=== PATIENT | female | born 1990 | race African-American/Black ===

== ENCOUNTER 2022-01-16 12:23 | Observation (INO) ==
[2022-01-16 16:28] LABS: Glucose,Urine (UA) Negative (Negative); Mucus,Urine Occasional /LPF (Occasional); Protein,Urine Negative (Negative); RBC,Urine 3 /HPF (0-4); Squamous Epithelial Cell,Urine Occasional /HPF (0-10); Urine Appearance Clear (Clear); Urine Color Yellow (Yellow); Urine Specific Gravity > 1.030 (1.001-1.035)
[2022-01-16 16:29] LABS: Bilirubin,Urine Negative (Negative); Blood, Urine Large mg/dL (Negative); Ketones,Urine >160 mg/dL (Negative); Nitrite,Urine Negative (Negative); Urine Urobilinogen 0.2 eU/dL (<2.0)
[2022-01-16 16:42] LABS: Basophils % 0.2 % (0.0-0.8); Eosinophils % 0.5 % (0.00-10.9); Hematocrit 34.7 VOL% (35.7-47.0); Hemoglobin 11.3 GM/DL (12.0-16.0); Immature Granulocytes % 0.5 %; Immature Granulocytes Absolute 0.04 #; Lymphocytes # 2.2 10*3/uL (1.4-4.0); Lymphocytes % 27.7 % (21.3-54.2); Mean Corpuscular HGB Conc 32.6 GM/DL (32-36); Mean Corpuscular Volume 84.4 FL (87-102); Monocytes # 0.8 10*3/uL (0.11-0.8); Monocytes % 9.4 % (1.7-12.7); Neutrophils % 61.7 % (38.7-73.9); Platelet Count 248 T/CUMM (130-400); Red Blood Count 4.11 MC/CUMM (3.8-5.5); Red Cell Distribution Width 13.2 % (9.3-17.3)
[2022-01-16] MEDS ORDERED: SODIUM CHLORIDE 0.9% 1,000 ML IV STA (17:17)
[2022-01-16 17:29] LABS: Albumin 4.3 G/DL (3.4-5.0); Bilirubin,Total 0.5 MG/DL (0.20-1.00); Calcium 8.9 MG/DL (8.5-10.1); Osmolality,Calculated 271.8 MOS/KG (273-304); Potassium 3.4 MMOL/L (3.5-5.1); Total Protein 8.1 G/DL (6.4-8.2)
[2022-01-16] MEDS ORDERED: fentaNYL 100 MCG/2 ML VIAL ONE ×2 (17:40→18:33)
[2022-01-16] MEDS ORDERED: LIDOCAINE 2% 5 ML VIAL ONE (17:40)
[2022-01-16] MEDS ORDERED: propofoL 200 MG/20 ML VIAL IV ONE (17:40)
[2022-01-16] MEDS ORDERED: SEVOFLURANE 1 UNIT/15 MINUTE INH ONE ×2 (17:40→18:00)
[2022-01-16] MEDS ORDERED: ROCURONIUM 50 MG/5 ML VIAL IV ONE (17:40)
[2022-01-16] MEDS ORDERED: SUCCINYLCHOLINE 200 MG/10 ML VIAL ONE (17:40)
[2022-01-16] MEDS ORDERED: MIDAZOLAM 2 MG/2 ML VIAL ONE (17:56)
[2022-01-16] MEDS ORDERED: LACTATED RINGERS 1,000 ML IV ONE (18:03)
[2022-01-16] MEDS ORDERED: ONDANSETRON 4 MG/2 ML VIAL IV PRN ×2 (18:51→19:44)
[2022-01-16] MEDS ORDERED: SUGAMMADEX 200 MG/2 ML VIAL IV ONE (19:11)
[2022-01-16] MEDS: HYDROmorphone 1 MG/1 ML SYRINGE IV PRN ×2 (19:41→19:51)
[2022-01-16] MEDS ORDERED: ACETAMINOPHEN 325 MG TABLET PO PRN (19:44)
[2022-01-16] MEDS ORDERED: MAGNESIUM HYDROXIDE SUSP 30 ML UDCUP PO PRN (19:44)
[2022-01-16] MEDS ORDERED: BENZOCAINE/MENTHOL LOZENGE 18/BOX PO PRN (19:44)
[2022-01-16] MEDS ORDERED: BISACODYL 10 MG SUPP RECTAL PRN (19:44)
[2022-01-16] MEDS ORDERED: LACTATED RINGERS 1,000 ML IV SCH (20:00)
[2022-01-16 23:47] LABS: Hematocrit 30.6 VOL% (35.7-47.0); Hemoglobin 9.8 GM/DL (12.0-16.0)
[2022-01-17] MEDS: POTASSIUM CHLORIDE 20 MEQ TABLET PO PRN ×3 (02:12→10:30)
[2022-01-17] MEDS ORDERED: SIMETHICONE CHEW 80 MG TABLET PO ONE (02:48)
[2022-01-17] MEDS: IBUPROFEN 800 MG TABLET PO PRN ×2 (02:52→20:41)
[2022-01-17 05:22] LABS: Basophils % 0.3 % (0.0-0.8); Eosinophils # 0.1 10*3/uL (0.0-0.87); Eosinophils % 0.7 % (0.00-10.9); Hematocrit 30.6 VOL% (35.7-47.0); Hemoglobin 9.6 GM/DL (12.0-16.0); Immature Granulocytes % 0.7 %; Immature Granulocytes Absolute 0.07 #; Lymphocytes # 1.8 10*3/uL (1.4-4.0); Lymphocytes % 17.7 % (21.3-54.2); Mean Corpuscular HGB Conc 31.4 GM/DL (32-36); Mean Platelet Volume 9.6 FL (9.6-12.0); Monocytes # 0.9 10*3/uL (0.11-0.8); Monocytes % 8.7 % (1.7-12.7); Neutrophils % 71.9 % (38.7-73.9); Platelet Count 211 T/CUMM (130-400); Red Blood Count 3.56 MC/CUMM (3.8-5.5); Red Cell Distribution Width 13.1 % (9.3-17.3); White Blood Count 10.4 T/CUMM (4-12)
[2022-01-17] MEDS ORDERED: POTASSIUM CHLORIDE 20 MEQ TABLET PO PRN (08:11)
[2022-01-17] MEDS: DOCUSATE SODIUM 100 MG CAPSULE PO PRN ×2 (08:35→21:47)
[2022-01-17] MEDS ORDERED: MAGNESIUM CITRATE 300 ML BOTTLE PO ONE (10:00)
[2022-01-17] MEDS ORDERED: SIMETHICONE CHEW 80 MG TABLET PO PRN (10:39)
[2022-01-17] MEDS ORDERED: POTASSIUM CHLORIDE 20 MEQ TABLET PO SCH (11:00)
[2022-01-18 05:36] LABS: Albumin 3.3 G/DL (3.4-5.0); Bilirubin,Total 0.4 MG/DL (0.20-1.00); Calcium 8.5 MG/DL (8.5-10.1); Osmolality,Calculated 271.8 MOS/KG (273-304); Potassium 3.7 MMOL/L (3.5-5.1)
[2022-01-18] MEDS: IBUPROFEN 800 MG TABLET PO PRN (08:26)
[2022-01-18 12:37] VITALS: BP 110/59
== END 2022-01-18 13:45 | disposition home or self-care (01) ==
LOC: N.EDINP 12:23 → N.ED 12:23 → N.OB 20:02
PROVIDERS: ADMIT Obstetrics & Gynecology; ATTEND Obstetrics & Gynecology